=== PATIENT | female | born 1955 | race Caucasian/White ===

== ENCOUNTER 2024-04-24 11:13 | Outpatient (OUT) | payer MEDICAID, SELFPAY ==
--- NOTE | 2024-04-24 11:25 | MM_ITS ---
Patient Name: CASSIUS RAO MR#: [id number] : 1955 Exam Date: 04/24/2024 Ordering Doctor: DR ISA CASTELLANO D.O. RADIOLOGY REPORT PROCEDURE: MM TOMOSYNTHESIS SCREENING BI COMPARISON: None. INDICATIONS: Screening Calculator Name NCI Breast Cancer Risk Assessment Tool 5 Year Breast Cancer Risk Not Reported. Lifetime Breast Cancer Risk Not Reported. Personal Breast Cancer No Personal Ovarian Cancer No Treatments None Family Cancers None LOCATION: [facility] BREAST COMPOSITION: There are scattered areas of fibroglandular density. FINDINGS: DIAGNOSTIC CATEGORY 2--BENIGN FINDING: RIGHT BREAST: No significant suspicious finding. Scattered benign-appearing calcifications are present. Scattered benign-appearing lymph nodes are present. LEFT BREAST: No significant suspicious finding. Scattered benign-appearing calcifications are present. Scattered benign-appearing lymph nodes are present. RECOMMENDATIONS: ROUTINE MAMMOGRAM AND CLINICAL EVALUATION IN 12 MONTHS. PLEASE NOTE: A NORMAL MAMMOGRAM DOES NOT EXCLUDE THE POSSIBILITY OF BREAST CANCER. A CLINICALLY SUSPICIOUS PALPABLE LUMP SHOULD BE BIOPSIED. Dictated by: Adams Blank M.D. on 04/24/2024 at 14:12 Approved by: Adams Blank M.D. on 04/24/2024 at 14:13
== END 2024-04-24 11:14 | disposition home or self-care (01) ==
LOC: MAMMO 11:21
PROVIDERS: PCP Internal Medicine; Visit Provider Internal Medicine
DX: Z12.31 Encounter for screening mammogram for malignant neoplasm of breast (principal)
CPT/HCPCS: 77063; 77067

== ENCOUNTER 2024-05-25 20:39 | Outpatient (REF) | payer MEDICAID, SELFPAY ==
[2024-06-02 12:07] LABS: Age Gdln ACOG Testing Note (.); Pap IG (Image Guided) Note (.)
== END 2024-05-25 20:40 | disposition home or self-care (01) ==
LOC: LAB 20:39
PROVIDERS: PCP Internal Medicine; Visit Provider Physician Assistant
DX: Z01.419 Encounter for gynecological examination (general) (routine) without abnormal findings (principal)
CPT/HCPCS: 88175

== ENCOUNTER 2024-06-26 12:52 | Outpatient (OUT) | payer SELFPAY ==
--- NOTE | 2024-06-26 13:20 | XR_ITS ---
The [address] [address] Patient Name: CASSIUS RAO MRN: [id number] date: 1955 Sex: F Assigned Patient Location: [facility] Current Patient Location: [facility] Accession/Order Number: [id number] Exam Date: 06/26/2024 13:05 Report Date: 06/26/2024 13:44 At the request of: VIKRAM STACK Procedure: XR DEXA axial skeleton EXAMINATION: XR DEXA axial skeleton, 06/26/2024 1:05 PM EST HISTORY: Screening Osteoporosis COMPARISON: None. TECHNIQUE: Dual-energy X-ray absorptiometry (DEXA) bone density study performed for the axial skeleton. FINDINGS: Bone mineral density AP spine L1-L4 measures 1.160 g/sq cm. T score -0.2. Normal Lowest bone mineral density right femoral trochanter measures 0.463 g/sq cm. T score -3.4. Osteoporosis XR/XR DEXA axial skeleton IMPRESSION: Osteoporosis. High fracture risk Pharmacologic treatment recommendations * No uniform recommendation applies to all patients. Management plans must be individualized. * Consider initiating pharmacologic treatment in postmenopausal women and men >= 50 years of age who have the following: Primary fracture prevention: * T-score <= - 2.5 at the femoral neck, total hip, lumbar spine, 33% radius (some uncertainty with existing data) by DXA. * Low bone mass (osteopenia: T-score between - 1.0 and - 2.5) at the femoral neck or total hip by DXA with a 10-year hip fracture risk >= 3% or a 10-year major osteoporosis-related fracture risk >= 20% (i.e., clinical vertebral, hip, forearm, or proximal humerus) based on the [place]-adapted FRAXregistered model. Secondary fracture prevention: * Fracture of the hip or vertebra regardless of BMD [4, 5]. * Fracture of proximal humerus, pelvis, or distal forearm in persons with low bone mass (osteopenia: T-score between - 1.0 and - 2.5). The decision to treat should be individualized in persons with a fracture of the proximal humerus, pelvis, or distal forearm who do not have osteopenia or low BMD [12, 13]. Sonja MS, Leatha SL, Nissa KENNEDY, Tootie EM, Estefania KG, Stock AJ, Lucrecia ES. The clinician's guide to prevention and treatment of osteoporosis. Osteoporos Int. 2021;33(10):8727-0682. doi: 10.1007/n13552-452-66385-f. Epub 2021Sep 28. Erratum in: Osteoporos Int. 2021Dec 28;: PMID: [id number]; PMCID: [id number]. Electronically authenticated by: VASQUEZ GUNTER Date: 06/26/2024 13:44
== END 2024-06-26 12:53 | disposition home or self-care (01) ==
LOC: RAD 12:52
PROVIDERS: PCP Internal Medicine; Visit Provider Physician Assistant
DX: Z78.0 Asymptomatic menopausal state (principal); M81.8 Other osteoporosis without current pathological fracture
CPT/HCPCS: 77080

== ENCOUNTER 2024-11-09 07:36 | Outpatient (RCR) | payer MEDICAID, MEDICARE, SELFPAY ==
[2024-11-09 13:20] LABS: Estimated GFR (African America 54 (>=60 mL/min/1.73m^2); Estimated GFR (Non-African Ame 44 (>=60 mL/min/1.73m^2)
[2024-11-09 13:23] LABS: Calcium 9.3 mg/dL (8.5-10.1)
[2024-11-09 13:24] VITALS: BP 146/81; PULSE 86; TEMP 36.7; O2SAT 95
[2024-11-09] MEDS: DENOSUMAB 60 MG/ML SYRINGE SQ (13:33)
== END 2024-11-10 07:34 | disposition home or self-care (01) ==
LOC: LAB 07:36
PROVIDERS: PCP Internal Medicine; Visit Provider Obstetrics & Gynecology
DX: Z51.81 Encounter for therapeutic drug level monitoring (principal); M81.8 Other osteoporosis without current pathological fracture
CPT/HCPCS: 36415; 82310; 82565; 96372; J0897

== ENCOUNTER 2025-05-13 11:31 | Outpatient (RCR) | payer MEDICARE, MEDICAID, SELFPAY ==
[2025-05-13 11:53] LABS: Calcium 9.0 mg/dL (8.5-10.1); Estimated GFR (African America >60 (>=60 mL/min/1.73m^2); Estimated GFR (Non-African Ame 50 (>=60 mL/min/1.73m^2)
[2025-05-13] MEDS: DENOSUMAB 60 MG/ML SYRINGE SUBQ (12:45)
[2025-05-13 13:01] VITALS: BP 162/83; PULSE 100; TEMP 36.4; O2SAT 97
== END 2025-06-02 23:59 | disposition home or self-care (01) ==
LOC: INF 11:31
PROVIDERS: PCP Nurse Practitioner; Visit Provider Obstetrics & Gynecology
DX: M81.8 Other osteoporosis without current pathological fracture (principal); Z78.0 Asymptomatic menopausal state
CPT/HCPCS: 36415; 82310; 82565; 96372; J0897